=== PATIENT | female | born 1940 | race Caucasian/White ===

== ENCOUNTER 2021-10-13 13:13 | Outpatient (REF) | payer MEDICARE, SELFPAY ==
--- NOTE | ~2021-10-13 | XR_ITS ---
EXAMINATION: XR HIP, LEFT CLINICAL INFORMATION: Pain COMPARISON: None TECHNIQUE: Two views of the left hip and one view of the pelvis. FINDINGS: No fracture or dislocation is seen. There is mild arthritis at the left hip joint with small superior lateral acetabular osteophyte. Bones the pelvis are normal. The right hip joint is normal. There are postsurgical changes to the lower lumbar spine. There is soft tissue calcification adjacent to the left greater trochanter questionable for calcific tendinitis or bursitis. XR/XR hip LT w [id number] IMPRESSION: Mild left hip arthritis. Soft tissue calcification or ossification adjacent to the left greater trochanter questionable for calcific tendinitis or bursitis.
== END 2021-10-13 13:14 | disposition home or self-care (01) ==
LOC: HO.XRAY 13:13
PROVIDERS: PCP Internal Medicine; Visit Provider Psychiatry & Neurology Neurology
DX: M25.552 Pain in left hip (principal)
CPT/HCPCS: 73502